=== PATIENT | female | born 1985 | race Caucasian/White ===

== ENCOUNTER 2019-07-19 19:28 | Inpatient (IN) | payer MEDICARE ==
[~2019-07-19] VITALS: Ht 165.1 cm; Wt 79.4 kg
[2019-07-19] MEDS ORDERED: PANTOPRAZOLE 40 MG VIAL ONE (19:49)
[2019-07-19] MEDS ORDERED: LORAZEPAM INJ 2 MG/ML VIAL ONE (19:49)
[2019-07-19] MEDS ORDERED: ONDANSETRON HCL/PF 4 MG/2 ML VIAL ONE (19:49)
[2019-07-19 19:54] LABS: BASOPHILS % (AUTO) 0.9 % (0.0-2.0); EOSINOPHILS % (AUTO) 0.1 % (0.0-6.0); HEMATOCRIT 38 % (33-45); HEMOGLOBIN 12.2 g/dL (11.5-14.8); LYMPHOCYTES # (AUTO) 0.7 /CMM (0.8-4.8); LYMPHOCYTES % (AUTO) 20.5 % (20.0-44.0); MEAN CORPUSCULAR HGB CONC 32 g/dl (31.0-36.0); MEAN CORPUSCULAR VOLUME 78 fL (82-100); MONOCYTES # (AUTO) 0.3 /CMM (0.1-1.30); MONOCYTES % (AUTO) 8.1 % (2.0-12.0); NEUTROPHILS # (AUTO) 2.3 /CMM (1.8-8.9); NEUTROPHILS % (AUTO) 70.4 % (43.0-81.0); PLATELET COUNT (AUTO) 282 /CMM (150-450); RED BLOOD CELL COUNT(AUTO) 4.86 MIL/uL (4.0-5.2); WHITE BLOOD COUNT (AUTO) 3.3 K/uL (4.3-11.0)
--- NOTE | 2019-07-19 19:57 | NUR ---
ALYSE FROM HOME TO ER BED 7. AAOX4. NO BREATHING RAPID. ANXIOUS. C/O EPIGASTRIC PAIN WHICH PT REPORT STARTED COUPLE OF HOURS AGO. PAIN IS RATED 10/10 W/ SENSATION SHARP, IF SOME SHE GOT SHOT IN THE STOMACH PT ALSO REPORTS THAT SHE HAS BEE VOMMITING THROUGHOUT THE DAY AND NAUSEOUS. MD WAS AT BEDSIDE. ORDERS RECEIVED, NOTED AND CARRIED OUT. IV LINE ON L AC STARTER, BLOOD DRAWN AND GIVENT O AIRPLANE PATROLLER AT BEDSIDE. EKG DONE BY EMT
[2019-07-19] MEDS ORDERED: PANTOPRAZOLE 40 MG VIAL IV ONE (20:00)
[2019-07-19] MEDS ORDERED: ONDANSETRON HCL/PF 4 MG/2 ML VIAL IVP ONE (20:00)
[2019-07-19] MEDS ORDERED: LORAZEPAM INJ 2 MG/ML VIAL IV ONE (20:00)
[2019-07-19] MEDS ORDERED: IV NS 0.9% 1,000 ML BAG IV ONE ×2 (20:00→20:30)
--- NOTE | 2019-07-19 20:04 | NUR ---
PT UNABLE TO URINATE AT THIS TIME. MADE AWARE. PT WAS ALSO MEDICATED ORDERED
[2019-07-19 20:08] LABS: ACETAMINOPHEN 138 ug/ml (10-30); ALANINE AMINOTRANSFERASE 65 U/L (12-78); ALBUMIN 3.6 g/dL (3.4-5.0); ALCOHOL, BLOOD < 3 mg/dL (0-0); ALKALINE PHOSPHATASE 72 U/L (46-116); ASPARTATE AMINOTRANSFERASE 141 U/L (15-37); BILIRUBIN,DIRECT 0.2 mg/dL (0.0-0.2); BILIRUBIN,TOTAL 0.8 mg/dL (0.2-1.0); CALCIUM, SERUM 8.4 mg/dL (8.5-10.1); CARBON DIOXIDE 21 mmol/L (21-32); CHLORIDE 103 mmol/L (98-107); CREATININE 0.9 mg/dL (0.6-1.3); GLUCOSE 178 mg/dL (74-106); POTASSIUM 3.2 mmol/L (3.5-5.1); SALICYLATE 0.6 mg/dL (2.8-20.0); SODIUM SERUM 140 mmol/L (136-145); TOTAL PROTEIN, SERUM 7.3 g/dL (6.4-8.2); UREA NITROGEN, BLOOD 7 mg/dL (7-18)
[2019-07-19 20:16] LABS: LIPASE 81 U/L (73-393)
--- NOTE | 2019-07-19 20:20 | NUR ---
PT STATED THAT SHE TOOK ASPIRIN EARLIER.
[2019-07-19] MEDS ORDERED: KETOROLAC TROMETHAMINE INJ 30 MG/ML VIAL ONE (20:21)
--- NOTE | 2019-07-19 20:26 | NUR ---
PT TO CT ON YUNI
[2019-07-19] MEDS ORDERED: KETOROLAC TROMETHAMINE INJ 30 MG/ML VIAL IV ONE (20:30)
[2019-07-19] MEDS ORDERED: ACETYLCYSTEINE IV 6,000 MG/30 ML VIAL IV ONE ×2 (20:30→21:00)
[2019-07-19] MEDS ORDERED: ACETYLCYSTEINE IV ONE ×2 (20:30→21:00)
[2019-07-19] MEDS ORDERED: D5W IV ONE ×2 (20:30→21:00)
[2019-07-19] MEDS ORDERED: ACETYLCYSTEINE IV 3,400 MG in IV D5W 500 ML IV ONE (20:30)
--- NOTE | 2019-07-19 20:39 | NUR ---
CALLED [facility], PAGED BRANDI
--- NOTE | 2019-07-19 20:49 | NUR ---
ER SPOKE TO BRANDI JOSE REGARDING PT ADMISSION.
[2019-07-19] MEDS ORDERED: MAGNESIUM HYDROXIDE 30 ML UDC PO PRN (21:00)
[2019-07-19] MEDS ORDERED: Z GUARD REMEDY 2 OZ OINT TP PRN (21:00)
[2019-07-19] MEDS ORDERED: MAG HYDROX/AL HYDROX/SIMETH 30 ML UDC PO PRN (21:00)
--- NOTE | 2019-07-19 21:59 | NUR ---
report given to gretchen lott for cordell
[2019-07-19] MEDS ORDERED: ACETYLCYSTEINE IV 3,400 MG in IV D5W 500 ML IV SCH (22:00)
--- NOTE | 2019-07-19 22:40 | NUR ---
RIBBON SWEATBAND OPERATORPOWERHOUSE ELECTRICIAN APPRENTICE NOTES RECEIVED PATIENT FROM ER VIA ACLS PROTOCOL, ON YUNI, ABLE TO TRANSFER SELF TO BED WITHOUT ASSISTANCE. PATIENT AWAKE BUT LETHARGIC, A/O X4, ABLE TO VERBALIZE NEEDS. PATIENT DENIES ANY SUICIDAL IDEATIONS, STATING "I DIDN'T MEAN TO HURT MYSELF BY TAKING ALL OF THOSE PILLS, I JUST WANTED THE HEADACHE TO GO AWAY." BEDSIDE IMMIGRATION INVESTIGATOR READS SINUS TACHYCARDIA, HR 103 BPM. PATIENT REFUSING TO REMOVE HOME CLOTHES (PANTS), UNABLE TO PERFORM FULL SKIN ASSESSMENT, BUT SKIN OTHERWISE INTACT. LEFT AC #20GAUGE PATENT AND INTACT, WILL START IV FLUIDS AND MUCOMYST GTT BAG #2, AND OBTAIN SECOND IV ACCESS. PLAN OF CARE DISCUSSED WITH THE PATIENT, WHOM VERBALIZES UNDERSTANDING. WILL CONTINUE TO CLOSELY MONITOR
--- NOTE | 2019-07-19 22:47 | NUR ---
PT TRANSPORTED TO UNIT ON [facility] WITH EMT AND RN AT BEDSIDE W/ ACLS PROTOCOL. NAD NOTED DURING TRANSPORT. PT'S MEDICATION SENT UP WITH PT
[2019-07-19] MEDS: IV NS 0.9% 1,000 ML IV SCH (22:48)
--- NOTE | 2019-07-19 22:56 | NUR ---
MUCOMYST ORIGINAL ORDER BY DR. BANERJEE WAS VERIFIED BY PHARMACIST TO DOSE. ORDER NON ADMIN AND PHARMACY DOSED ORDER USED. PREPARED MEDICATION BAGS RECEIVED FROM PHARMACY AND DOSE 2 & 3 SENT UP TO UNIT W/ PT
--- NOTE | 2019-07-19 23:00 | NUR ---
PACKING INSPECTOR NOTES PER ER NURSE SHERITA, NO NEED TO CONTACT POISON CONTROL PER ORDER FROM ER PHYSICIAN DR TURNER
--- NOTE | 2019-07-19 23:00 | NUR ---
CERTIFIED FAMILY MEDIATOR NOTES MUCOMYST GTT, BAG #2 INFUSING THROUGH LEFT AC #20GAUGE. PATIENT EDUCATED REGARDING PLAN OF CARE AND MEDICATION REGIMEN. PATIENT WITH C/O 8/10 EPIGASTRIC PAIN, REQUESTING FOR "SOMETHING TO HELP WITH THE PAIN." DR PAZ NOTIFIED REGARDING PAIN, WITH NEW ORDER FOR TORADOL 30MG IV Q6H PRN. ORDER READ BACK FOR CLARIFICATION. WILL CARRY OUT NEW ORDERS AND MONITOR THE PATIENT CLOSELY
[2019-07-19 23:02] VITALS: BP 106/69
[2019-07-19] MEDS: KETOROLAC TROMETHAMINE INJ 30 MG/ML VIAL IV PRN (23:20)
[2019-07-19] MEDS: ONDANSETRON HCL/PF 4 MG/2 ML VIAL IVP PRN (23:20)
[2019-07-19 23:30] VITALS: BP 116/76
[2019-07-19 23:47] VITALS: BP 111/76
[2019-07-20] VITALS (19 sets, daily range): BP systolic 92–117; BP diastolic 53–77
--- NOTE | 2019-07-20 | NUR ---
DIRECTOR ORANGE NOTES RECEIVED CALL FORM LAB REGARDING ACETAMINOPHEN LEVEL, NO SCHEDULED TIME FOR LAB DRAW. CLARIFIED WITH DR PAZ, ACETAMINOPHEN LEVEL Q6 HOURS X 2. SPOKE TO MT FROM LAB, NEXT LEVEL TO BE DRAWN AT 0200, THEN 0800.
--- NOTE | 2019-07-20 00:15 | NUR ---
BOAT CANVAS MAKER INSTALLER NOTES POTASSIUM LEVEL FROM ER LAB WORK = 3.2. DR PAZ MADE AWARE, NNO AT THIS TIME, WILL AWAIT AM LAB DRAW.
[2019-07-20] MEDS ORDERED: LORAZEPAM INJ 2 MG/ML VIAL IV PRN ×2 (00:30→09:30)
[2019-07-20] MEDS ORDERED: ACETYLCYSTEINE IV 6,800 MG in IV D5W 1,000 ML IV ONE (02:00)
[2019-07-20 07:53] LABS: CALCIUM, SERUM 7.5 mg/dL (8.5-10.1); CREATININE 0.6 mg/dL (0.6-1.3); MAGNESIUM 1.3 mg/dL (1.8-2.4); PHOSPHORUS 2.3 mg/dL (2.5-4.9); POTASSIUM 3.3 mmol/L (3.5-5.1)
[2019-07-20 07:54] LABS: BASOPHILS % (AUTO) 0.3 % (0.0-2.0); HEMATOCRIT 34 % (33-45); HEMOGLOBIN 11.1 g/dL (11.5-14.8); LYMPHOCYTES # (AUTO) 0.5 /CMM (0.8-4.8); LYMPHOCYTES % (AUTO) 5.1 % (20.0-44.0); MEAN CORPUSCULAR HGB CONC 33 g/dl (31.0-36.0); MEAN CORPUSCULAR VOLUME 78 fL (82-100); MONOCYTES # (AUTO) 0.4 /CMM (0.1-1.30); MONOCYTES % (AUTO) 3.5 % (2.0-12.0); NEUTROPHILS # (AUTO) 9.7 /CMM (1.8-8.9); NEUTROPHILS % (AUTO) 91.1 % (43.0-81.0); PLATELET COUNT (AUTO) 217 /CMM (150-450); RED BLOOD CELL COUNT(AUTO) 4.36 MIL/uL (4.0-5.2); WHITE BLOOD COUNT (AUTO) 10.6 K/uL (4.3-11.0)
--- NOTE | 2019-07-20 08:00 | NUR ---
RN NOTE: Received patient in bed, awake, alert and verbally responsive. Respiration even and unlabored saturating 100%. HOB elevated. Denied pain at this time. Patient is on Mucomyst drip per MD order and IVF NS@100ml/hr. (L) AC 20G and (R) hand 22G IV site noted patent and intact. Bedside commode was in placed and patient was given an instruction that if she needed to get up and use the bedside commode to push the call light for assistance. Patient verbalized understanding. Afebrile. Skin warm to touch. Call light within reach. Needs anticipated. Patient still insisted to keep her pants under the hospital gown. Breakfast tray was given to the patient.
[2019-07-20] MEDS: IV NS 0.9% 1,000 ML IV SCH (08:51)
[2019-07-20] MEDS ORDERED: POTASSIUM CHLORIDE 20 MEQ TAB.PRT.SR PO ONE (09:00)
--- NOTE | 2019-07-20 09:28 | NUR ---
RN NOTE: Called and spoke with Mj from Poison Control Center (Case #: [id number]) per Dr. Calero's request to check how long the patient needed the Mucomyst drip. As per Mj, the case of the patient and acetaminophen levels was discussed over the phone. Same as the drug regimen being used for the patient. As per Mj, call back Poison Control Center once the LFT and INR level was recheck again. Dr. Calero will be inform about this.
[2019-07-20] MEDS: Magnesium 1GM/D5W 100ML PREMIX 100 ML IV SCH ×4 (10:01→13:21)
--- NOTE | 2019-07-20 11:33 | NUR ---
Social service consult requested by Yasmany Medrano MD for ETOH abuse and accidental Tylenol overdose. Pt is a 34 year old female who was admitted to [facility] for overdone and abdominal pain. Pt was laying down in her bed with her belongings at bedside. Pt is alert and oriented x 4 (person, place, time, situation). Pt spoke softly and appeared to have woken up from sleep. Pt states she lives alone and is currently self-employed as a childrens entertainer. Pts next of kin and person to notify is her friend Denisha [[phone]]. Pt appears ambulatory. Pt denies a history of drug, marijuana, or cigarette use but states, I had been drinking the night before and had a bad head ache that wouldnt go away, so I kept taking Tylenol hoping it would work. Pt furthers stated, I took it on an empty stomach, I think this is why this happened. Pt denies a history of psychiatric diagnosis. Pt denies wanting to kill self. Pt denies suicidal ideation and homicidal ideation. Pt denies visual or auditory hallucinations. Pt declined substance abuse treatment program referrals but was receptive to counseling referrals. SW asked if referrals can be left on her side table, and pt responded sure. KEITH provided pt with the following counseling and mental health referrals: [facility] [address] [facility] [address]; [phone], [facility] [address] [facility] [address], [place] [address]; [phone], and [facility] [address] [place] [address]; [phone]. KEITH also provided pt with the following substance abuse treatment programs in case pt changes motivation in the future: [facility] [address] [place] [address]; [phone], [facility] [address] [place] [address]; [phone], and the [facility]stance Abuse Self Hel[facility] [phone]. No other services needed at this time. SW available if needed.
[2019-07-20 11:34] LABS: ALBUMIN 2.8 g/dL (3.4-5.0); BILIRUBIN,DIRECT 1.5 mg/dL (0.0-0.2); BILIRUBIN,TOTAL 3.4 mg/dL (0.2-1.0); TOTAL PROTEIN, SERUM 5.4 g/dL (6.4-8.2)
--- NOTE | 2019-07-20 12:51 | NUR ---
RN NOTE: Called and spoke with Mj from the Poison Control Center and he was informed of the AST/ALT and INR result. As per Mj,, continue the current Mucomyst drip and per Mj he recommended to change the next bag of Mucomyst to 100mg/kg. Dr. Calero was made aware and he agreed with the recommendation.
--- NOTE | 2019-07-20 12:52 | NUR ---
RN NOTE: Per Mj from Poison Control he wanted to recheck the LFT and INR at 1800 today before the 3rd bag of Mucomyst is finish.
--- NOTE | 2019-07-20 14:15 | NUR ---
RN NOTE: Urine for test was sent to lab.
--- NOTE | 2019-07-20 18:20 | NUR ---
RN NOTE: Received a telephone call from [facility] of Poison Control Center and she was following up regarding the case of the patient. She was informed that the LFT and INR level was drawn at 1800 and was awaiting for the results. Poison Control staff was recommending to change the Mucomyst concentration to 100mg/kg for the next bag of Mucomyst if the LFT levels will be above 1000. Dr. Calero was aware of this recommendations from Poison Control.
[2019-07-20] MEDS: IV NS 0.9% 1,000 ML IV PRN (18:41)
[2019-07-20] MEDS: KETOROLAC TROMETHAMINE INJ 30 MG/ML VIAL IV PRN (18:54)
[2019-07-20 19:03] LABS: ALBUMIN 2.5 g/dL (3.4-5.0); BILIRUBIN,DIRECT 1.5 mg/dL (0.0-0.2); BILIRUBIN,TOTAL 3.1 mg/dL (0.2-1.0); TOTAL PROTEIN, SERUM 5.4 g/dL (6.4-8.2)
--- NOTE | 2019-07-20 19:20 | NUR ---
RN NOTE: Bedside report was given to John Paul, FORGE HAND for continuity of care. Endorsed to him to follow-up the result of the LFT and INR and to keep in touch with Poison Control with regards to the patient's Mucomyst drip depending on the LFT and INR level. Patient was resting in bed, and a Toradol 30mg IVP was administered per patient's request for pain medication due to her epigastric pain and headache. IVF and Mucomyst drip continued to be given per MD order.
[2019-07-20] MEDS ORDERED: ACETYLCYSTEINE IV SCH (20:00)
[2019-07-20] MEDS ORDERED: D5W IV SCH (20:00)
--- NOTE | 2019-07-20 20:54 | NUR ---
I CALLED POISON CONTROL, THEY SAID PT NEEDS A 4TH BAG OF ACETYLCYSTEINE 1 LITER 100 MG/KG OVER 16 HRS,
[2019-07-20] MEDS ORDERED: ACETYLCYSTEINE IV ONE ×2 (20:56→22:00)
[2019-07-20] MEDS ORDERED: D5W IV ONE ×2 (20:56→22:00)
--- NOTE | 2019-07-20 21:13 | NUR ---
PER POISON CONTROL, RUN 4TH BAG OF ACETYLCYSTEINE 100 MG/KG IN 1 LITER D5W OVER 16 HOURS THEN RECHECK LFT AND INR 1 HOUR PRIOR TO 4TH BAG OF ACETYLCYSTEINE INFUSION END
[2019-07-20] MEDS ORDERED: ACETYLCYSTEINE IV 3,400 MG in IV D5W 500 ML IV ONE (22:00)
[2019-07-20] MEDS: ZOLPIDEM TARTRATE 5 MG TABLET PO PRN (22:27)
[2019-07-21] VITALS (24 sets, daily range): BP systolic 88–123; BP diastolic 24–75
[2019-07-21] MEDS: ONDANSETRON HCL/PF 4 MG/2 ML VIAL IVP PRN ×4 (00:48→21:29)
[2019-07-21] MEDS: IV NS 0.9% 1,000 ML IV PRN ×3 (00:51→19:30)
[2019-07-21 04:40] LABS: CALCIUM, SERUM 7.4 mg/dL (8.5-10.1); CREATININE 0.6 mg/dL (0.6-1.3)
[2019-07-21 04:54] LABS: POTASSIUM 2.8 mmol/L (3.5-5.1)
--- NOTE | 2019-07-21 05:39 | NUR ---
potassium 2.8, notified, ordered 40 meq potassium x 2 po, will carry out orders
[2019-07-21] MEDS ORDERED: POTASSIUM CHLORIDE 20 MEQ TAB.PRT.SR PO ONE ×2 (06:00→07:00)
--- NOTE | 2019-07-21 07:10 | NUR ---
RN INITIAL NOTES RECEIVED PT ASLEEP, EASY TO AROUSE. ON ROOM AIR. NO RESPIRATORY DISTRESS NOTED. NO SIGNS OF PAIN NOTED. IV LINES IN PLACE. IVF AND MUCOMYST INFUSING. INR AND LFT AT 1300. SKIN INTACT. AMBULATORY AND CONTINENT. CALL LIGHT WITHIN REACH. WILL MONITOR
[2019-07-21] MEDS: KETOROLAC TROMETHAMINE INJ 30 MG/ML VIAL IV PRN ×2 (09:05→18:02)
[2019-07-21 09:31] LABS: ALBUMIN 2.6 g/dL (3.4-5.0); BILIRUBIN,TOTAL 3.6 mg/dL (0.2-1.0); TOTAL PROTEIN, SERUM 5.4 g/dL (6.4-8.2)
--- NOTE | 2019-07-21 11:00 | NUR ---
RN NOTES 0900 SEEN AND EXAMINED BY DR WHITE. AWARE OF LAB VALUES. PT ON MUCOMYST IV. LFT AND INR AT 1300 PER POISON CONTROL. WILL MONITOR 1100 SUNWOO FROM POISON CONTROL CALLED (#[phone]) AND GIVEN UPDATE ABOUT PT'S CONDITION. PER SUNWOO, IF AST IS >1000 AND/OR INR >2, CONTINUE MUCOMYST IV ORDERED. DRAW AT 1300. WILL CONTINUE TO MONITOR.
[2019-07-21] MEDS ORDERED: K PHOS NEUTRAL 250 MG TABLET PO ONE (13:00)
[2019-07-21 13:21] LABS: ALBUMIN 2.6 g/dL (3.4-5.0); BILIRUBIN,DIRECT 2.3 mg/dL (0.0-0.2); BILIRUBIN,TOTAL 3.6 mg/dL (0.2-1.0); TOTAL PROTEIN, SERUM 5.2 g/dL (6.4-8.2)
[2019-07-21] MEDS ORDERED: ACETYLCYSTEINE IV ONE (14:00)
[2019-07-21] MEDS ORDERED: D5W IV ONE (14:00)
--- NOTE | 2019-07-21 18:21 | NUR ---
RN CLOSING NOTES NO SIGNIFICANT CHANGE NOTED. PT REMAINS ON IVF AND MUCOMYST IV. C/O HEADACHE, PAIN MEDICINE GIVEN AND NOTED EFFECTIVE. KEPT CLEAN AND DRY. ALL NEEDS ATTENDED AND MET. CALL LIGHT WITHIN REACH. WILL ENDORSE FOR CONTINUITY OF CARE
[2019-07-21 19:51] LABS: ALBUMIN 2.3 g/dL (3.4-5.0); BILIRUBIN,DIRECT 2.1 mg/dL (0.0-0.2); BILIRUBIN,TOTAL 3.4 mg/dL (0.2-1.0); TOTAL PROTEIN, SERUM 4.9 g/dL (6.4-8.2)
--- NOTE | 2019-07-21 20:00 | NUR ---
Received patient awake alert and oriented x4.VSS.ST 105-110.Hemodynamically stable.Respiration even and unlabored. On room air SPO2 94%-100%.IVF NS and Acetadote/Mucomyst infusing as prescribed iv sites intact.denies pain at this time.Safety precaution maintained.Call light at bedside with instructions to call for assistance.
--- NOTE | 2019-07-21 21:30 | NUR ---
Patient complaints of nausea.PRN antiemetic administered as ordered.
--- NOTE | 2019-07-21 22:20 | NUR ---
Called Poison Control regarding PM lab results spoke to Seymour.She said to continue same IV Acetadote and do labs in am as ordered.To call poison control in am once labs resulted.
[2019-07-21] MEDS: ZOLPIDEM TARTRATE 5 MG TABLET PO PRN (22:35)
[2019-07-22] VITALS (28 sets, daily range): BP systolic 67–152; BP diastolic 24–105
--- NOTE | 2019-07-22 | NUR ---
Patient sleeping on rounds.Was given bed bath and Ambien as requested.VS stable.
[2019-07-22] MEDS: IV NS 0.9% 1,000 ML IV PRN ×3 (03:52→20:46)
--- NOTE | 2019-07-22 06:00 | NUR ---
Patient slept most of the night .No significant change noted.IVF infusing well.VS remains stable. SR per monitor.No pain.Safety precaution maintained.Call light at bedside.
[2019-07-22 06:01] LABS: ALBUMIN 2.3 g/dL (3.4-5.0); BILIRUBIN,DIRECT 2.4 mg/dL (0.0-0.2); BILIRUBIN,TOTAL 3.4 mg/dL (0.2-1.0); TOTAL PROTEIN, SERUM 4.9 g/dL (6.4-8.2)
--- NOTE | 2019-07-22 07:19 | NUR ---
AM Labs resulted with elevated PT/INR,AST,ALT level endorsed to day shift RN for SAMMY.
--- NOTE | 2019-07-22 07:34 | NUR ---
TOW FEEDER NOTE SPOKE WITH POISON CONTROL JUAN ALBERTO, RELAYED CURRENT PT/INR, ALT/AST NOTES. WITH RECOMMENDATION TO START ANOTHER 1L OF MUCOMYST AND CHECK LIVER PANEL AND PT/INR ONE HOUR BEFORE ITS COMPLETED. PHARMACY INFORMED, AND THEY WILL MAKE NEW BAG.
[2019-07-22] MEDS: ONDANSETRON HCL/PF 4 MG/2 ML VIAL IVP PRN ×3 (07:45→20:52)
[2019-07-22] MEDS: KETOROLAC TROMETHAMINE INJ 30 MG/ML VIAL IV PRN (07:45)
--- NOTE | 2019-07-22 07:54 | NUR ---
RIBBING MACHINE OPERATOR INITIAL NOTE RECEIVED PATIENT AWAKE, ALERT AND ORIENTED. WITH C/O 8/10 HEADACHE, AND NAUSEA. PRN PAIN MEDICATION AND ZOFRAN GIVEN. NO RESPIRATORY DISTRESS NOTED. ON RA. ON TELE MONITOR SR. LEFT BREAKFAST AT BEDSIDE FOR PATIENT WHEN SHE FEELS BETTER TO EAT. IVF RUNNING. HOB ELEVATED. SIDE RAILS UP AND LOCKED. BED KEPT AT LOWEST POSITION. CALL LIGHT KEPT WITHIN EASY REACH. WILL CONTINUE TO MONITOR.
--- NOTE | 2019-07-22 08:06 | NUR ---
6TH GRADE TEACHER NOTE RECEIVED TELEPHONE ORDER FOR STAT CBC AND BMP ON PATIENT. PER MD GI CONSULT WILL COME SEE PATIENT TODAY AND POSSIBLE TRANSFER. WILL CONTINUE TO MONITOR.
--- NOTE | 2019-07-22 08:31 | NUR ---
CLIENT SERVICE MANAGER NOTE RECEIVED CALL FROM [facility], STATED TRANSFER REQUEST WAS MADE BY DR. GARIBAY. RELAYED CALL TO CASE MANAGEMENT.
[2019-07-22] MEDS: ACETYLCYSTEINE IV SCH (08:38)
[2019-07-22] MEDS: D5W IV SCH (08:38)
[2019-07-22 09:02] LABS: BASOPHILS % (AUTO) 0.2 % (0.0-2.0); EOSINOPHILS % (AUTO) 1.3 % (0.0-6.0); HEMATOCRIT 34 % (33-45); HEMOGLOBIN 10.8 g/dL (11.5-14.8); LYMPHOCYTES # (AUTO) 0.7 /CMM (0.8-4.8); LYMPHOCYTES % (AUTO) 9.1 % (20.0-44.0); MEAN CORPUSCULAR HGB CONC 32 g/dl (31.0-36.0); MEAN CORPUSCULAR VOLUME 78 fL (82-100); MONOCYTES # (AUTO) 0.5 /CMM (0.1-1.30); MONOCYTES % (AUTO) 6.9 % (2.0-12.0); NEUTROPHILS # (AUTO) 6.2 /CMM (1.8-8.9); NEUTROPHILS % (AUTO) 82.5 % (43.0-81.0); PLATELET COUNT (AUTO) 172 /CMM (150-450); RED BLOOD CELL COUNT(AUTO) 4.28 MIL/uL (4.0-5.2); WHITE BLOOD COUNT (AUTO) 7.5 K/uL (4.3-11.0)
[2019-07-22 09:25] LABS: CALCIUM, SERUM 7.4 mg/dL (8.5-10.1); CREATININE 0.7 mg/dL (0.6-1.3); POTASSIUM 3.7 mmol/L (3.5-5.1)
[2019-07-22] MEDS: MORPHINE SULFATE INJ 2 MG/ML DISP.SYRIN IV PRN ×2 (10:45→15:54)
--- NOTE | 2019-07-22 10:59 | NUR ---
MANAGER CARE NOTE PATIENT HAD ONE EPISODE OF EMESIS 100ML. PATIENT NOW RESTING. WILL CONTINUE TO MONITOR.
[2019-07-22] MEDS ORDERED: MORPHINE SULFATE INJ 2 MG/ML DISP.SYRIN IM PRN (11:00)
--- NOTE | 2019-07-22 11:50 | NUR ---
BOILER WASHER NOTE PATIENTS FRIENDS AT BEDSIDE. PER PATIENT OK TO GIVE HER FRIENDS INFORMATION. UPDATES GIVEN TO FRIENDS.
--- NOTE | 2019-07-22 15:24 | NUR ---
specialist icu note received call from poison control Deysi, updates given regarding patient. Requested to be informed once patient is transferred. [phone]
--- NOTE | 2019-07-22 15:59 | NUR ---
Confirmed with [facility] pt is accepted and financially cleared awaiting for bed. [facility] will call [facility] floor nurse once bed is available. Arranged transportation via [facility] [phone] [phone] on will call. Addendum: 07/22/19 at 1559 by XIOMY WEBB CMG Amended: Links added.
--- NOTE | 2019-07-22 19:41 | NUR ---
POULTRY BARN MANAGER NOTE PATIENT RESTING IN BED SLEEPING. AROUSABLE. PAIN MONITORED AND MANAGED NEEDED. PRN ZOFRAN GIVEN FOR NAUSEA. PENDING TRANSFER TO [facility]. HOB ELEVATED. SIDE RAILS UP AND LOCKED. BED KEPT AT LOWEST POSITION. CALL LIGHT KEPT WITHIN EASY REACH. CONTINUITY OF CARE ENDORSED TO PM NURSE.
--- NOTE | 2019-07-22 20:58 | NUR ---
Received patient awake alert and oriented x4.VS stable.SR.Respiration even and unlabored.Patient vomited x 1.PRN med administered.IVF NS and Mucomyst infusing well.Sites intact.Denies pain. Safety measures maintained.Bed low and locked position,side rails up and call light at bedside. Still awaiting for transfer to [facility].
[2019-07-22] MEDS: ZOLPIDEM TARTRATE 5 MG TABLET PO PRN (22:53)
[2019-07-22] MEDS ORDERED: ONDANSETRON HCL/PF 4 MG/2 ML VIAL IV PRN (23:30)
[2019-07-23] VITALS (18 sets, daily range): BP systolic 97–126; BP diastolic 57–84
--- NOTE | 2019-07-23 | NUR ---
Patient complaints of nausea after drinking apple juice. notified with orders and carried out.PRN med for insomnia given as requested.Kept comfortable.
[2019-07-23 00:20] LABS: ALBUMIN 2.5 g/dL (3.4-5.0); BILIRUBIN,DIRECT 2.1 mg/dL (0.0-0.2); TOTAL PROTEIN, SERUM 5.2 g/dL (6.4-8.2)
[2019-07-23] MEDS: D5W IV SCH ×2 (00:50→19:14)
[2019-07-23] MEDS: ACETYLCYSTEINE IV SCH ×2 (00:50→19:14)
--- NOTE | 2019-07-23 01:05 | NUR ---
PM LFT and PT/INR results called to Pearl Wilson at Poison Control.No new orders received just continue Acetadote/Mucomyst gtt as ordered.Patient sleeping at this time.VSS.
--- NOTE | 2019-07-23 01:35 | NUR ---
Michael from [facility] called and get update for patient.No bed available yet.
[2019-07-23 04:30] LABS: BASOPHILS % (AUTO) 0.6 % (0.0-2.0); EOSINOPHILS % (AUTO) 5.4 % (0.0-6.0); HEMATOCRIT 35 % (33-45); HEMOGLOBIN 11.2 g/dL (11.5-14.8); LYMPHOCYTES # (AUTO) 0.8 /CMM (0.8-4.8); LYMPHOCYTES % (AUTO) 13.3 % (20.0-44.0); MEAN CORPUSCULAR HGB CONC 32 g/dl (31.0-36.0); MEAN CORPUSCULAR VOLUME 78 fL (82-100); MONOCYTES # (AUTO) 0.3 /CMM (0.1-1.30); MONOCYTES % (AUTO) 5.9 % (2.0-12.0); NEUTROPHILS # (AUTO) 4.4 /CMM (1.8-8.9); NEUTROPHILS % (AUTO) 74.8 % (43.0-81.0); PLATELET COUNT (AUTO) 186 /CMM (150-450); RED BLOOD CELL COUNT(AUTO) 4.51 MIL/uL (4.0-5.2); WHITE BLOOD COUNT (AUTO) 5.8 K/uL (4.3-11.0)
[2019-07-23 04:48] LABS: ALBUMIN 2.3 g/dL (3.4-5.0); BILIRUBIN,DIRECT 1.7 mg/dL (0.0-0.2); BILIRUBIN,TOTAL 2.7 mg/dL (0.2-1.0); CALCIUM, SERUM 7.4 mg/dL (8.5-10.1); CREATININE 0.6 mg/dL (0.6-1.3); POTASSIUM 3.3 mmol/L (3.5-5.1); TOTAL PROTEIN, SERUM 4.9 g/dL (6.4-8.2)
[2019-07-23] MEDS: IV NS 0.9% 1,000 ML IV PRN ×2 (05:29→14:21)
--- NOTE | 2019-07-23 06:30 | NUR ---
Patient resting in no acute distress.SR.VS remains stable.Both IV's infusing well. No further complaints of nausea or vomiting.Participating with self care.AM labs LFT and PT/INR resulted trending down.Still on the waiting list for transfer to [facility]. Will endorse to day shift for cordell.
--- NOTE | 2019-07-23 08:00 | NUR ---
ICU/RN: Clarified Mucomyst dose rate with Rx; pump guardrails at 62.5mls/hr; ordered/calculated rate is 64.625 mls/hr. Per Rx Do [place] to run medication at safety guardrail limit rate.
[2019-07-23] MEDS: ONDANSETRON HCL/PF 4 MG/2 ML VIAL IVP PRN ×2 (10:55→23:22)
[2019-07-23] MEDS ORDERED: POTASSIUM CHLORIDE 20 MEQ TAB.PRT.SR PO SCH (11:30)
--- NOTE | 2019-07-23 13:45 | NUR ---
ICU/RN: Spoke with poison controlGerson. Updated on pt status and labs. Downward trend in AST/ALTs, coag studies. Recommends continuation of Mucomyst drip and monitoring AST/ALT and coag studies BID.
--- NOTE | 2019-07-23 15:00 | NUR ---
MS 2 TRANSFER FROM ICU NOTES RECEIVED PT FROM ICU AND RECEIVED REPORT FROM STEFANIASAMPLE DYE MIXER.PT IS ALERT AND ORIENTED X4. VERBALLY RESPONSIVE.NO SOB ON ROOM AIR.WITH ONGOING IVF OF MUCOMYST AT 62.5 ML/HR INFUSING WELL TO RFA.DENIES ANY PAIN OR DISTRESS.AWAITING TRANSFER TO [facility].CALL LIGHT PLACED WITHIN REACH.
[2019-07-23 17:27] LABS: BILIRUBIN,TOTAL 2.8 mg/dL (0.2-1.0); TOTAL PROTEIN, SERUM 4.5 g/dL (6.4-8.2)
--- NOTE | 2019-07-23 19:10 | NUR ---
MS RN OPENING NOTES Received patient A/O x4, awake on bed. On RA, no SOB/respiratory distress noted at this time. Patient denies any discomfort at this time. Kept on bed clean, dry and comfortable. On fall and aspiration precautions. Call light within easy reach. Will continue to monitor accordingly.
[2019-07-23] MEDS: ZOLPIDEM TARTRATE 5 MG TABLET PO PRN (22:06)
--- NOTE | 2019-07-24 02:20 | NUR ---
MS RN NOTES Received a call from [facility]'s Transfer Nurse Tho Goel confirming patient is in their list awaiting for bed.
[2019-07-24] MEDS: IV NS 0.9% 1,000 ML IV PRN ×2 (02:23→12:09)
--- NOTE | 2019-07-24 06:31 | NUR ---
MS RN CLOSING NOTES Patient asleep, easily awaken. On RA, no SOB/respiratory distress noted. Medicated for nausea, noted effective. Patient was noted able to ambulate in the hallway without assistance needed. Able to go to bathroom independently. All nursing needs attended. No new complaints made. Kept on bed clean, dry and comfortable. On fall and aspiration precautions. Call light within easy reach. Endorsed to the next shift.
[2019-07-24 08:00] VITALS: BP 123/81
--- NOTE | 2019-07-24 08:00 | NUR ---
MS RN OPENING NOTES Received patient A/O x4, awake on bed. On RA, no SOB/respiratory distress noted at this time.With ongoing Mucomyst IV at 64.78 mls/hr and IVF of 0.9%NS at 125 mls/hr infusing well. Amb ad charlene to BRP.Seen by Dr Stephenson with orders to f/u with Poison Control center ([phone]). Patient denies any discomfort at this time. Kept on bed clean, dry and comfortable. On fall and aspiration precautions. Call light within easy reach. Will continue to monitor accordingly.
[2019-07-24 08:57] LABS: CALCIUM, SERUM 7.4 mg/dL (8.5-10.1); CREATININE 0.7 mg/dL (0.6-1.3)
[2019-07-24] MEDS: ONDANSETRON HCL/PF 4 MG/2 ML VIAL IVP PRN (09:06)
[2019-07-24 09:07] LABS: ALBUMIN 2.4 g/dL (3.4-5.0); BILIRUBIN,DIRECT 1.7 mg/dL (0.0-0.2); TOTAL PROTEIN, SERUM 5.4 g/dL (6.4-8.2)
--- NOTE | 2019-07-24 11:15 | NUR ---
CALLED POISON CONTROL CENTER AND RELAYED PT'S LATEST AST:629 AND ALT :2097 RESULT WITH NO NEW ORDER AND JUST TO CONTINUE INFUSING THE SAME RATE OF MUCOMYST IVF.WILL FOLLOW UP AGAIN TOMORROW.PT KEEPS GOING TO THE TOILET DELAYING THE INFUSION OF MUCOMYST IV AND IVF NS FLUIDS.
[2019-07-24] MEDS: POTASSIUM CHLORIDE 20 MEQ TAB.PRT.SR PO SCH ×3 (11:43→13:53)
[2019-07-24] MEDS: D5W IV SCH (14:03)
[2019-07-24] MEDS: ACETYLCYSTEINE IV SCH (14:03)
--- NOTE | 2019-07-24 14:40 | NUR ---
CALLED PHARMACY AND SPOKE TO ANEL REGARDING PT'S MUCOMYST IV AND IVF NS IF ITS OK TO ADMINISTER WITH NO ADVERSE REACTIONS.NICOLE STATED THAT ITS OK TO ADMINISTER TOGETHER AT THE SAME SITE.
--- NOTE | 2019-07-24 14:46 | NUR ---
PT'S IV H/L IN RT HAND IS INFILTRATED AND REINSERT A NEW HEPLOCK IN THE LT AC.
[2019-07-24 15:06] LABS: *ANA ANTI-CENTROMERE B AB <0.2 AI (0.0-0.9); *ANA ANTI-DNA(DS) AB, QN <1 IU/mL (0-9); *ANA ANTI-JO-1 <0.2 AI (0.0-0.9); *ANA ANTICHROMATIN ANTIBODY <0.2 AI (0.0-0.9); *ANA RNP ANTIBODIES <0.2 AI (0.0-0.9); *ANA SJOGREN'S ANTI-SS-A <0.2 AI (0.0-0.9); *ANA SJOGREN'S ANTI-SS-B <0.2 AI (0.0-0.9); *ANAANTI-SCLERODERMA-70 AB <0.2 AI (0.0-0.9); *ANASMITH AB <0.2 AI (0.0-0.9)
[2019-07-24 16:00] VITALS: BP 111/68
[2019-07-24 17:52] LABS: ALBUMIN 2.2 g/dL (3.4-5.0); BILIRUBIN,DIRECT 1.3 mg/dL (0.0-0.2); BILIRUBIN,TOTAL 2.3 mg/dL (0.2-1.0)
--- NOTE | 2019-07-24 19:00 | NUR ---
ENCOURAGED PT TO WALK IN THE HALLWAY-EXPLAINED THE BENEFITS OF NOT STAYING IN BED ALL THE TIME.PT WALKED IN THE HALLWAY ONE TIME THIS AFTERNOON.CALL LIGHT PLACED WITHIN REACH.
--- NOTE | 2019-07-24 19:40 | NUR ---
RN OPENING NOTES RECEIVED PATIENT AWAKE IN BED, A/O X 4. CURRENTLY ON ROOM AIR, NO SIGNS OF RESPIRATORY DISTRESS, DENIES SHORTNESS OF BREATH AT THIS TIME. PATIENT DENIES PAIN OR DISCOMFORT AT THIS TIME. PATIENT WITH ONGOING MUCOMYST AT 64.78 AND IVF, INFUSING WELL. PATIENT NOTED AMBULATORY. SAFETY PRECAUTIONS IMPLEMENTED; CALL LIGHT WITHIN REACH, BED LOWEST POSITION, BED LOCKED, BILATERAL UPPER SIDE RAILS UP. PATIENT FAMILY AT BED SIDE. INSTRUCTED PATIENT TO PRESS CALL LIGHT WHEN NEEDED. WILL CONTINUE TO MONITOR.
[2019-07-24 20:00] VITALS: BP 123/76
[2019-07-24] MEDS: ZOLPIDEM TARTRATE 5 MG TABLET PO PRN (21:51)
[2019-07-25] MEDS: ACETYLCYSTEINE IV SCH (00:09)
[2019-07-25] MEDS: D5W IV SCH (00:09)
[2019-07-25] MEDS: IV NS 0.9% 1,000 ML IV PRN ×2 (00:21→21:42)
--- NOTE | 2019-07-25 00:47 | NUR ---
RN NOTES PERSON FROM [facility] CALLED TO ASK ABOUT PATIENT. THEY WILL CALL TOMORROW IF BED IS AVAILABLE.
[2019-07-25] MEDS: MORPHINE SULFATE INJ 2 MG/ML DISP.SYRIN IV PRN ×2 (05:34→20:52)
--- NOTE | 2019-07-25 06:37 | NUR ---
RN CLOSING NOTES PATIENT IS CURRENTLY ASLEEP, EASILY AWAKENED. ON ROOM AIR, NO SIGNS OF RESPIRATORY DISTRESS, NO SHORTNESS OF BREATH NOTED. PATIENT WAS SEEN AMBULATING IN THE HALLWAY WITHOUT ASSISTANCE. PATIENT ABLE TO GO TO RESTROOM INDEPENDENTLY. ALL NEEDS ATTENDED, ALL MEDS GIVEN ORDERED. NO COMPLAINTS OF PAIN OR DISCOMFORT AT THIS TIME. PATIENT KEPT CLEAN, DRY AND COMFORTABLE. SAFETY PRECAUTIONS IMPLEMENTED; CALL LIGHT WITHIN REACH, BED LOWEST POSITION, BED LOCKED, BILATERAL UPPER SIDE RAILS UP. WILL CONTINUE TO MONITOR, THEN WILL ENDORSE TO DAY SHIFT NURSE FOR CONTINUITY OF CARE.
--- NOTE | 2019-07-25 07:54 | NUR ---
MS RN OPENING NOTE RECEIVED PATIENT IN BED SLEEPING COMFORTABLY. PATIENT IN NO ACUTE DISTRESS. NO SOB NOTED. PATIENT BREATHING IS EVEN AND UNLABORED. PATIENT IN NO PAIN AT THIS TIME. NO FACIAL GRIMACING NOTED. BED ALARM IS ON. PATIENT SAFETY PRECAUTIONS IN PLACE. PATIENT BED IS LOCKED AND IN LOWEST POSITION. CALL LIGHT WITHIN REACH. WILL CONTINUE TO MONITOR.
[2019-07-25 08:00] VITALS: BP 115/70
[2019-07-25] MEDS ORDERED: POTASSIUM CHLORIDE 20 MEQ TAB.PRT.SR PO ONE (09:00)
[2019-07-25 10:36] LABS: CALCIUM, SERUM 7.2 mg/dL (8.5-10.1); CREATININE 0.7 mg/dL (0.6-1.3); POTASSIUM 3.6 mmol/L (3.5-5.1)
[2019-07-25 10:39] LABS: ALBUMIN 1.9 g/dL (3.4-5.0); BILIRUBIN,TOTAL 1.7 mg/dL (0.2-1.0); TOTAL PROTEIN, SERUM 4.3 g/dL (6.4-8.2)
--- NOTE | 2019-07-25 13:09 | NUR ---
MS RN NOTE SPOKE WITH POISON CONTROL, JENARO. REPORTED TO POISON CONTROL AST/ ALT LABS FOR TODAY. PER JENARO WITH ALT AT 1154 FINISH CURRENT DOSE OF MUCOMYST AND DO NOT GIVE [address] BROWN OF RECOMMENDATION FROM JENARO. PER MD CAPM TO DC MUCOMYST AFTER CURRENT DOSE IS FINISHED INFUSING.
[2019-07-25 16:00] VITALS: BP 114/79
[2019-07-25 17:41] LABS: ALBUMIN 2.8 g/dL (3.4-5.0); BILIRUBIN,DIRECT 1.4 mg/dL (0.0-0.2); BILIRUBIN,TOTAL 2.2 mg/dL (0.2-1.0)
--- NOTE | 2019-07-25 18:30 | NUR ---
MS RN CLOSING NOTE PATIENT IN BED RESTING COMFORTABLY. PATIENT IN NO ACUTE DISTRESS. NO SOB NOTED. PATIENT IN NO PAIN AT THIS TIME. PATIENT BREATHING IS EVEN AND UNLABORED. PATIENT KEPT CLEAN, DRY, AND COMFORTABLE THROUGHOUT SHIFT. SAFETY PRECAUTIONS IN PLACE. NEEDS AND CONCERNS ADDRESSED. PATIENT BED IS LOCKED AND IN LOWEST POSITION. CALL LIGHT WITHIN REACH. WILL ENDORSE CARE TO PM SHIFT FOR SAMMY.
--- NOTE | 2019-07-25 19:42 | NUR ---
MS/RN OPENING NOTES RECEIVED PATIENT IN BED, AWAKE, ALERT X3, ABLE TO VERBALIZE NEEDS, CALM AND COOPERATIVE, ABLE TO AMBULATE WITH SUPERVISION. RESPIRATIONS EVEN AND UNLABORED, IN ROOM AIR, SKIN WARM TO TOUCH. BEING MONITORED FOR ANY CHANGES, IV MUCOMYST TO BE DC , ON IVF WITH FFA GAUGE 20. RECEIVED ENDORSEMENT FROM AM RN FOR SAMMY.
[2019-07-25 20:00] VITALS: BP 115/73
[2019-07-25 20:35] VITALS: BP 115/73
--- NOTE | 2019-07-25 20:53 | NUR ---
MS/RN NOTES PAIN REPORTED ON LOWER ABDOMEN 9/10 INTENSITY GRIMACE GUARDING, MORPHINE 1 MG/ 0.5 ML GIVEN TO ALLEVIATE PAIN.
[2019-07-25] MEDS: ZOLPIDEM TARTRATE 5 MG TABLET PO PRN (22:48)
--- NOTE | 2019-07-25 22:50 | NUR ---
ms/rn notes PATIENT UNABLE TO SLEEP. REQUESTED FOR SLEEP MEDICATION PRN AMBIEN PO GIVEN.
--- NOTE | 2019-07-26 06:35 | NUR ---
MS/RB NOTES PATIENT ABLE TO SLEEP, AMBULATED IN THE [address] WAY STEADILY, ATE SOME JELLO AND TOLERATED SNACK WITH NO NAUSEA AND VOMITING. RESPIRATIONS EVEN AND UNLABORED, PAIN MEDICATION ADMINISTERED AND TOLERATED WELL, SLEPT FEW HOURS. WILL MONITOR.
[2019-07-26 08:00] VITALS: BP 109/70
--- NOTE | 2019-07-26 09:25 | NUR ---
MS ROLL RECLAIMER NOTE PATIENT MEDICALLY STABLE TO GO HOME. PATIENT IN NO ACUTE DISTRESS. NO SOB NOTED. PATIENT BREATHING IS EVEN AND UNLABORED. PATIENT ID BAND REMOVED. PATIENT IV REMOVED. DC INSTRUCTIONS PROVIDED. PATIENT VERBALIZED UNDERSTANDING. PATIENT REFUSED SKIN ASSESSMENT DESPITE EDUCATION OF RISKS VS BENEFITS. PATIENT SIGNED BELONGINGS LIST AND HAS ALL BELONGINGS WITH HER. PATIENT TO GO BACK HOME TO APARTMENT BY PATIENTS WISHES TO [facility] HOME. PATIENT KEPT CLEAN, DRY AND COMFORTABLE THROUGHOUT SHIFT. MD AWARE OF DISCHARGE.
== END 2019-07-26 09:40 | disposition home or self-care (01) | DRG 917 ==
LOC: ER 19:35 → ICU 21:32 → MEDSG2 07-23 14:19
PROVIDERS: ADMIT Internal Medicine; ATTEND Internal Medicine
DX: T39.1X1A Poisoning by 4-Aminophenol derivatives, accidental (unintentional), initial encounter (principal); K72.00 Acute and subacute hepatic failure without coma; B15.9 Hepatitis A without hepatic coma; K70.10 Alcoholic hepatitis without ascites; E87.6 Hypokalemia; R73.9 Hyperglycemia, unspecified; R74.0 Nonspecific elevation of levels of transaminase and lactic acid dehydrogenase [LDH]; F10.129 Alcohol abuse with intoxication, unspecified; K76.0 Fatty (change of) liver, not elsewhere classified; F50.9 Eating disorder, unspecified; Y90.9 Presence of alcohol in blood, level not specified; Z86.59 Personal history of other mental and behavioral disorders
CPT/HCPCS: 36415; 71045-TC; 80048-TC; 80053-TC; 80074; 80076-TC; 80305; 83516; 83605-TC; 83690-TC; 83735-TC; 83880; 84100-TC; 84703-TC; 85025-TC; 85610-TC; 86225; 86235; 86708; 86709; 87081-TC; C9113; G0378; G0480; J0132; J1885; J2060; J2270; J2405; J3475; J7030; J7060; J7070